=== PATIENT | male | born 1975 | race Caucasian/White ===

== ENCOUNTER 2019-04-07 00:27 | Emergency (ER) | payer MEDICAID ==
[~2019-04-07] VITALS: Ht 177.8 cm; Wt 75.0 kg
[2019-04-07 03:42] VITALS: BP 140/90
== END 2019-04-07 03:54 | disposition home or self-care (01) ==
LOC: EMS 00:27
DX: F10.10 Alcohol abuse, uncomplicated (principal); F11.10 Opioid abuse, uncomplicated; F32.9 Major depressive disorder, single episode, unspecified; F17.210 Nicotine dependence, cigarettes, uncomplicated